=== PATIENT | female | born 1975 | race Caucasian/White ===

== ENCOUNTER 2018-08-02 15:32 | Inpatient (IN) ==
[~2018-08-02 15:32] MED LIST: Aminoglycoside Consult 1 EACH MC ONE
--- NOTE | 2018-08-02 15:36 | Emergency Department Note ---
Disposition Clinical Impression: Rash of groin Skin ulcer of abdomen Qualifiers: Non-pressure ulcer stage: limited to breakdown of skin Qualified Code(s): L98.491 - Non-pressure chronic ulcer of skin of other sites limited to breakdown of skin Disposition: Admitted As Inpatient Condition: Fair Referrals: Kelly Luke MD [Primary Care Provider] - Forms: ED Satisfaction Letter Skin/Abscess/FB HPI Chief complaint: ED Skin/Abscess/Foreign Body Stated complaint: RED OPEN RASH [place] AREA AND LEGS Time Seen by Provider: 08/02/18 15:47 Source: patient, family Mode of arrival: private vehicle Limitations: no limitations Nursing Notes Reviewed: Yes Vital Signs Reviewed: Yes Pt Subjective Complaint: rash Onset (ago): week(s) (1) Tetanus Up to Date: yes Location: Abdomen, genitals Severity: moderate, severe Quality: burning, aching, constant Consistency: constant, Worsening Improves with: none Worsens with: palpation, movement Associated symptoms: Reports: chills, nausea, malaise. Denies: fever, rigors, itching, vomiting, arthralgias, myalgias, cough, shortness of breath Treatments prior to arrival: other (Diflucan for 1 week) Home Medications Medication Instructions Recorded Confirmed Albuterol Sulfate [Albuterol 2 puff IH Q6H PRN 06/22/15 08/02/18 Inhaler] Fluticasone/Salmeterol [Advair 1 each IH BID 06/22/15 08/02/18 100-50 Diskus] Gabapentin [Neurontin] 300 mg PO TID 06/22/15 08/02/18 Ibuprofen [Motrin] 800 mg PO Q8HR 06/22/15 08/02/18 LORazepam [Ativan] 1 mg PO TID PRN 06/22/15 08/02/18 Sertraline [Zoloft] 150 mg PO DAILY 06/22/15 08/02/18 Orphenadrine Citrate [Orphenadrine 100 mg PO TID 08/09/17 08/02/18 Citrate ER] Amitriptyline HCl 100 mg PO BID 08/31/17 08/02/18 Meclizine HCl [Verticalm] 25 mg PO BID PRN 08/31/17 08/02/18 Fluticasone Propionate Nasal 1 spray NS DAILY 08/02/18 08/02/18 [Flonase] Previous Rx's Medication Instructions Recorded Levothyroxine [Synthroid] 200 mcg PO DAILY@0630 #30 tablet 10/03/17 Omeprazole 20 mg PO DAILY 30 Days #30 10/16/17 tablet. Allergies Allergy/AdvReac Type Severity Reaction Status Date / Time codeine Allergy Difficulty Verified 04/24/18 19:12 Breathing haloperidol [From Haldol] Allergy Difficulty Verified 04/24/18 19:12 Breathing levofloxacin [From Levaquin] Allergy Difficulty Verified 04/24/18 19:12 Breathing Penicillins Allergy Difficulty Verified 04/24/18 19:12 Breathing prochlorperazine AdvReac Anxiety Verified 04/24/18 19:12 [From Compazine] IVP Dye Allergy Seizure Uncoded 02/25/18 12:47 All systems ED: reviewed and negative except as stated. Past Medical History - Past Medical History Attestation: Yes The following information was validated with the patient. Source: patient, old records reviewed, obtained from family, nursing notes reviewed Medical history: Reports: asthma, cancer, hyperlipidemia, kidney stones, seizures, thyroid disease, other (Elevated BMI). Denies: diabetes Surgical history: Reports: cholecystectomy (open, bowel resection due to complications of cholecystectomy), hysterectomy (TAHBSO), orthopedic, other, thyroidectomy (due to papillary thyroid cancer), other (EGD, lithotripsy x 12) Psychiatric history: Reports: anxiety, depression [employer] history: Reports: spontaneous , endometriosis, other - Social History Smoking Status: Former smoker Smokeless Tobacco Status: No Alcohol use: Reports: none Drug use: Reports: none Physical Exam - General Limitations: no limitations General appearance: alert, in no apparent distress - Head Head exam: atraumatic, normocephalic, normal inspection - Neck Neck exam: Present: normal inspection, full ROM, trachea midline. Absent: lymphadenopathy - Chest Chest inspection: Present: normal inspection, symmetric chest wall rise - Respiratory Respiratory exam: Present: normal lung sounds bilaterally. Absent: respiratory distress, wheezes, prolonged expiratory phase - Cardiovascular Cardiovascular exam: Present: regular rate, normal rhythm, normal heart sounds - Abdominal Exam Abdominal exam: Present: soft, normal bowel sounds, other (Pannus). Absent: distention, guarding, rebound, rigidity - Extremities Exam Extremities exam: Present: normal inspection, full ROM, normal capillary refill. Absent: tenderness, pedal edema - Expanded Lower Extremity Exam Neurovascular/Tendon exam: Present: normal capillary refill. Absent: motor deficit, sensory deficit, tendon deficit - Neurological Exam Neurological exam: Present: alert, oriented X3 - Psychiatric Psychiatric exam: Present: normal affect, normal mood - Skin Skin exam: Present: warm, dry, intact, normal color, rash (Patient has significant intertrigo in the groin that extends across the lower abdomen under the abdominal pannus. On the vulva and in the sydney-labial region she has erythema as well as some superficial skin breakdown with fibrinous exudates. This area is extremely tender without fluctuance or induration. Patient's redness extends posteriorly on the medial thighs but not to the perirectal region or buttocks.) Course Course Narrative: [id number]: Care is discussed with Dr. Tamayo. He is agreeable with observation and wound care. Verbal orders have been obtained for observation. Vital Signs Temperature 97.5 F L 08/02/18 15:38 Pulse Rate 101 08/02/18 15:38 Respiratory Rate 16 08/02/18 15:38 Blood Pressure 127/71 08/02/18 15:38 O2 Sat by Pulse Oximetry 97 08/02/18 15:38 Temperature 97.5 F L 08/02/18 15:38 Pulse Rate 101 08/02/18 15:38 Respiratory Rate 16 08/02/18 15:38 Blood Pressure 127/71 08/02/18 15:38 O2 Sat by Pulse Oximetry 97 08/02/18 15:38 Skin/Abscess/Foreign Body - Differential Diagnosis Likely: abscess of skin or subcutaneous tissue, dermatophytosis, cellulitis - Medical Records Medical records reviewed: Yes I reviewed the patient's medical records. - Lab Data Lab results reviewed: Yes I reviewed the patient's lab results. Result diagrams: 08/02/18 16:03 08/02/18 16:03 Lab Results 08/02/18 08/02/18 08/02/18 Range/Units 16:03 16:03 16:08 WBC 13.4 H (4.3-11.1) K/mcL RBC 4.54 (3.82-4.97) M/mcL Hgb 10.2 L (11.5-15.4) g/dL Hct 34.6 L (35.3-44.9) % MCV 76.2 L (83.0-100.0) fL MCH 22.5 L (28.0-33.3) pg MCHC 29.5 L (31.6-35.5) g/dL RDW 15.8 H (11.5-14.5) % Plt Count 524 H (140-400) K/mcL MPV 9.4 (9.4-12.4) fL Immature Gran % 1.1 (0-4) % Seg Neutrophils % 70.8 % Lymphocytes % 20.7 % Monocytes % 5.5 % Eosinophils % 1.6 % Basophils % 0.3 % Neutrophils # 9.5 H (1.6-8.9) K/mcL Lymphocytes # 2.8 (0.6-4.6) K/mcL Monocytes # 0.7 (0.0-1.3) K/mcL Eosinophils # 0.2 (0.0-0.6) K/mcL Basophils # 0.0 (0.0-0.2) K/mcL Sodium 136 (136-145) mEq/L Potassium 3.4 L (3.5-5.1) mEq/L Chloride 102 (98-107) mEq/L Carbon Dioxide 25 (23-29) mEq/L BUN 9 (6-20) mg/dL Creatinine 0.66 (0.60-1.20) mg/dL Est GFR ( Amer) > 60 (> 60) Est GFR (Non-Af Amer) > 60 (> 60) BUN/Creatinine Ratio 14 (6-26) Glucose 106 H (70-105) mg/dL POC Glucose 95 (70-99) mg/dL Calculated Osmolality 281 (280-300) Calcium 8.9 (8.6-10.3) mg/dL
[2018-08-02] MEDS ORDERED: *HR* HYDROcodone/Acet 5/325 mg TABLET PO ONE (15:58)
[2018-08-02] MEDS ORDERED: Nystatin POWDER 30 GM BOTTLE TP ONE (15:58)
[2018-08-02 16:09] LABS: Basophils % 0.3 %; Eosinophils # 0.2 K/mcL (0.0-0.6); Eosinophils % 1.6 %; Hematocrit 34.6 % (35.3-44.9); Hemoglobin 10.2 g/dL (11.5-15.4); Immature Granulocytes % 1.1 % (0-4); Lymphocytes # 2.8 K/mcL (0.6-4.6); Lymphocytes % 20.7 %; Mean Corpuscular HGB Conc 29.5 g/dL (31.6-35.5); Mean Corpuscular Hemoglobin 22.5 pg (28.0-33.3); Mean Corpuscular Volume 76.2 fL (83.0-100.0); Mean Platelet Volume 9.4 fL (9.4-12.4); Monocytes # 0.7 K/mcL (0.0-1.3); Monocytes % 5.5 %; Neutrophils # 9.5 K/mcL (1.6-8.9); Platelet Count 524 K/mcL (140-400); Red Blood Count 4.54 M/mcL (3.82-4.97); Red Cell Distribution Width 15.8 % (11.5-14.5); Segmented Neutrophils % 70.8 %
[2018-08-02 16:28] LABS: BUN/Creatinine Ratio 14 (6-26); Blood Urea Nitrogen 9 mg/dL (6-20); Calcium 8.9 mg/dL (8.6-10.3); Carbon Dioxide 25 mEq/L (23-29); Chloride 102 mEq/L (98-107); Glucose 106 mg/dL (70-105); Osmolality,Calculated 281 (280-300); Potassium 3.4 mEq/L (3.5-5.1); Sodium 136 mEq/L (136-145); eGFR For Non-African Americans > 60 (> 60)
[2018-08-02] MEDS ORDERED: Fluconazole 100 MG TABLET PO SCH (19:10)
[2018-08-02] MEDS ORDERED: MOM Conc 10 ML UD.LIQ PO PRN (19:10)
[2018-08-02] MEDS ORDERED: *HR* OxyCODONE Immed Rel 5 MG TABLET PO PRN (19:10)
[2018-08-02] MEDS ORDERED: Ondansetron ODT 4 MG TAB.RAPDIS SL PRN (19:10)
[2018-08-02] MEDS ORDERED: Mag Hydrox/Al Hydrox/Simeth 30 ML UDC PO PRN (19:10)
[2018-08-02] MEDS ORDERED: Naloxone 0.4 MG/ML INJ IVP PRN (19:10)
[2018-08-02] MEDS ORDERED: *HR* HYDROcodone/Acet 5/325 mg TABLET PO PRN (19:10)
[2018-08-02] MEDS: Gabapentin 300 MG CAPSULE PO SCH (20:52)
[2018-08-02] MEDS: Orphenadrine 100 MG TABLET.ER PO SCH (20:53)
[2018-08-02] MEDS: Ketoconazole 2% CRM 15 GM TUBE TP SCH ×2 (20:53→21:48)
[2018-08-02] MEDS ORDERED: Nystatin POWDER 30 GM BOTTLE TP SCH (21:00)
[2018-08-02] MEDS: *HR* LORazepam 1 MG TABLET PO PRN (21:03)
[2018-08-02] MEDS ORDERED: Vancomycin (wt based) 1,000 MG VIAL IV ONE (21:58)
[2018-08-02] MEDS: Budesonide/Formoterol 80/4.5 MDI IH SCH (23:13)
[2018-08-03] MEDS ORDERED: Ibuprofen 800 MG TABLET PO SCH
[2018-08-03] MEDS ORDERED: *HR* HYDROcodone/Acet 5/325 mg TABLET PO SCH
[2018-08-03] MEDS: *HR* HYDROcodone/Acet 5/325 mg TABLET PO ONE ×2 (00:22→21:12)
[2018-08-03] MEDS: *HR* OxyCODONE Immed Rel 5 MG TABLET PO PRN ×5 (01:13→18:53)
[2018-08-03] MEDS: *HR* HYDROcodone/Acet 5/325 mg TABLET PO PRN ×4 (04:33→16:44)
[2018-08-03 05:35] LABS: Basophils % 0.4 %; Eosinophils # 0.3 K/mcL (0.0-0.6); Eosinophils % 2.7 %; Hematocrit 33.4 % (35.3-44.9); Hemoglobin 9.6 g/dL (11.5-15.4); Immature Granulocytes % 1.5 % (0-4); Lymphocytes # 2.8 K/mcL (0.6-4.6); Lymphocytes % 25.4 %; Mean Corpuscular HGB Conc 28.7 g/dL (31.6-35.5); Mean Corpuscular Hemoglobin 22.4 pg (28.0-33.3); Mean Platelet Volume 9.3 fL (9.4-12.4); Monocytes # 0.7 K/mcL (0.0-1.3); Monocytes % 6.2 %; Platelet Count 488 K/mcL (140-400); Red Blood Count 4.28 M/mcL (3.82-4.97); Red Cell Distribution Width 16.3 % (11.5-14.5); Segmented Neutrophils % 63.8 %
[2018-08-03 05:54] LABS: BUN/Creatinine Ratio 13 (6-26); Blood Urea Nitrogen 9 mg/dL (6-20); Calcium 8.7 mg/dL (8.6-10.3); Carbon Dioxide 27 mEq/L (23-29); Chloride 103 mEq/L (98-107); Glucose 85 mg/dL (70-105); Osmolality,Calculated 286 (280-300); Potassium 3.4 mEq/L (3.5-5.1); Sodium 139 mEq/L (136-145); eGFR For Non-African Americans > 60 (> 60)
[2018-08-03 06:07] LABS: Thyroid Stimulating Hormone 16.515 mcIU/mL (0.340-5.600)
[2018-08-03 06:27] LABS: Anisocytosis 2+ (Not Present)
[2018-08-03 06:28] LABS: Hypochromasia Present (Not Present); Ovalocytes 1+ (Not Present); Platelet Estimate Increased (Normal)
[2018-08-03] MEDS: Fluconazole 100 MG TABLET PO SCH (08:23)
[2018-08-03] MEDS: Gabapentin 300 MG CAPSULE PO SCH ×2 (08:25→21:12)
[2018-08-03] MEDS: Fluticasone Propionate Nasal 50 MCG/SPRAY BOTTLE NS SCH (08:25)
[2018-08-03] MEDS: Orphenadrine 100 MG TABLET.ER PO SCH ×3 (08:25→21:14)
[2018-08-03] MEDS: *HR* LORazepam 1 MG TABLET PO PRN ×2 (08:27→21:12)
[2018-08-03] MEDS: Ketoconazole 2% CRM 15 GM TUBE TP SCH ×2 (08:32→21:15)
[2018-08-03 08:43] LABS: % Iron Saturation 6 % (15-50); Iron 22 mcg/dL (50-170); Transferrin 275 mg/dL (203-362)
[2018-08-03 09:00] LABS: Ferritin 15 ng/mL (10-120)
[2018-08-03] MEDS: Budesonide/Formoterol 80/4.5 MDI IH SCH ×2 (10:42→21:47)
[2018-08-03] MEDS ORDERED: IRON DEXTRAN COMPLEX IVPB ONE (10:56)
[2018-08-03] MEDS ORDERED: SODIUM CHLORIDE 0.9% IVPB ONE (10:56)
[2018-08-03] MEDS ORDERED: Cyanocobalamin (B-12) 1,000 MCG/ML VIAL IM ONE (10:57)
[2018-08-03] MEDS ORDERED: Vancomycin 1,750 MG in 0.9 % Sodium Chloride 250 ML IVPB SCH (11:00)
--- NOTE | 2018-08-03 11:03 | Internal Med History&Physical ---
Date of Encounter: 08/03/18 Time of Encounter: 10:05 Assessment and Plan (1) Cellulitis Current visit: Yes Status: Acute She has purulent cellulitis with inflammatory dermatitis and will be started on oral Diflucan, topical ketoconazole, and IV vancomycin for possible secondary bacterial infection. Qualifiers: Site of cellulitis: other site Qualified Code(s): L03.818 - Cellulitis of other sites (2) Iron deficiency anemia Current visit: No Status: Acute Anemia testing showed iron 22, transferrin saturation 6%, transferrin 275, and ferritin 15. She will be given IV iron dextran and NSAIDs will be discontinued. Qualifiers: Iron deficiency anemia type: unspecified iron deficiency Qualified Code(s): D50.9 - Iron deficiency anemia, unspecified (3) B12 deficiency Current visit: Yes Status: Acute B12 level returned significantly low at 120. She will be given a B12 injection and started on oral B12 supplement. (4) Hypokalemia Current visit: Yes Status: Acute Supplemental potassium will be given. (5) Fibromyalgia Current visit: No Status: Acute Continue amitriptyline and gabapentin. (6) Hypothyroidism Current visit: No Status: Acute TSH returned further elevated at 16.515. Synthroid dose will be increased to 250 g daily. Qualifiers: Hypothyroidism type: acquired Qualified Code(s): E03.9 - Hypothyroidism, unspecified (7) Anxiety and depression Current visit: No Status: Chronic Continue Ativan and Zoloft. (8) Asthma Current visit: No Status: Chronic Continue Advair/Symbicort and prn albuterol nebs. Qualifiers: Asthma severity: unspecified severity Asthma persistence: unspecified Asthma complication type: unspecified Qualified Code(s): J45.909 - Unspecified asthma, uncomplicated Internal Medicine - H&P: HPI Chief complaint: Leg ulcerations with drainage Admitted From: Emergency Dept Plans for Post Hospital Care: Home History of present illness: Ms. Ivan is a 43 year old female who came to emergency room stating she had developed significant increased size of a "rash" in her lower abdominal and groin area over the preceding 24-48 hours. She reports purulent drainage present and significant pain. She had been placed on Diflucan 1 week earlier by her PCP for tinea cruris with no improvement. She was evaluated in emergency room and found to have purulent drainage from shallow ulcers in her groin with possible secondary bacterial cellulitis. [facility]. She reports a previous less severe episode of dermatitis several months ago. Past Med Surg Social Fam HX - Past Medical History Medical history: asthma, cancer, hyperlipidemia, kidney stones, seizures, thyroid disease, other Additional medical history: thyroid Psychiatric history: anxiety, depression - Past Surgical History Surgical History: cholecystectomy, hysterectomy, orthopedic, other, thyroidectomy, other Additional surgical history: L knee, shoulder, cyst removed in stomach, bile duct resection - Social History Smoking Status: Former smoker Smokeless Tobacco Status: No Alcohol use: none Drug use: none - Family History Father Adopted: Yes Family Member Ethnicity: Non- Living Status: Hx Family Cardiac Disorders: Yes (RI in 30s) Mother Adopted: Yes Family Member Ethnicity: Non- Brother History Unknown: Yes Adopted: Yes (adopted at 3 months old) Family Member Ethnicity: Non- Living Status: Still Living Internal Medicine - H&P: Meds Albuterol Sulfate [Albuterol Inhaler] 2 puff IH Q6H PRN 06/22/15 [History] Fluticasone/Salmeterol [Advair 100-50 Diskus] 1 each IH BID 06/22/15 [History] Gabapentin [Neurontin] 300 mg PO TID 06/22/15 [History] Ibuprofen [Motrin] 800 mg PO Q8HR 06/22/15 [History] LORazepam [Ativan] 1 mg PO TID PRN 06/22/15 [History] Sertraline [Zoloft] 150 mg PO DAILY 06/22/15 [History] Orphenadrine Citrate [Orphenadrine Citrate ER] 100 mg PO TID 08/09/17 [History] Amitriptyline HCl 100 mg PO BID 08/31/17 [History] Meclizine HCl [Verticalm] 25 mg PO BID PRN 08/31/17 [History] Levothyroxine [Synthroid] 200 mcg PO DAILY@0630 #30 tablet 10/03/17 [Rx] Omeprazole 20 mg PO DAILY 30 Days #30 tablet. 10/16/17 [Rx] Fluticasone Propionate Nasal [Flonase] 1 spray NS DAILY 08/02/18 [History] Allergy/AdvReac Type Severity Reaction Status Date / Time codeine Allergy Difficulty Verified 12/09/18 19:12 Breathing haloperidol [From Haldol] Allergy Difficulty Verified 04/24/18 19:12 Breathing levofloxacin [From Levaquin] Allergy Difficulty Verified 04/24/18 19:12 Breathing Penicillins Allergy Difficulty Verified 04/24/18 19:12 Breathing prochlorperazine AdvReac Anxiety Verified 04/24/18 19:12 [From Compazine] IVP Dye Allergy Seizure Uncoded 02/25/18 12:47 All Systems PM: A 10-system review of systems was performed and is negative for pertinent findings except as documented above in the HPI. Review of systems: Gen.: Her weight has decreased from 137.3 kg on 10/16/2017 to present weight of 120.23 kg. Cardiovascular: She denies hypertension RI heart failure angina DVT or pulmonary embolus. Heart cath 10/13/2017 showed unremarkable coronary arteries. Echocardiogram 09/27/2017 showed LVEF of 65%. No significant valvular abnormalities were seen. Estimated RVSP was 23 mmHg. The interventricular septum and posterior wall thickness measurements were 1.18 and 0.88 cm respectively. Respiratory: She smoked from age [age] up to 4 packs per day. She reports PFTs were done approximately 2016. She reports a diagnosis of asthma. She denies NEHEMIAS evaluation. She does not use home oxygen. GI: She has had cholecystectomy. Surgery was completed by inadvertent nicking of the bowel and/or bile duct resulting in small segmental resection of bowel. She denies disorders of her liver or exocrine pancreas. : She has had multiple calcium oxalate kidney stones with multiple lithotripsies in the past. She denies other kidney or bladder disorders. Neurologic: She reports a seizure following IVP dye administration several years ago. She denies large distribution strokes or recurrent seizures. Endocrine: She had thyroid cancer resulting in total thyroidectomy several years ago. She has been on replacement Synthroid. Her dose was increased from 175 g daily a few days ago to dose of 200 g daily. She has history of hyperlipidemia. She denies DM 2. Hematology/oncology: She has had anemia in the past but does not know details. She had thyroid cancer as per above. She has presumed cancer free. She denies other internal malignancies. Psychiatric: She has anxiety and depression denies other mental health diagnoses. Mus[place] skeletal: She has DJD and has had 3 knee surgeries without replacement. She has fibromyalgia. - Constitutional Vitals: Temp Pulse Resp BP Pulse Ox 97.9 F 86 16 124/78 96 08/03/18 07:43 08/03/18 07:43 08/03/18 07:43 08/03/18 07:43 08/03/18 09:20 Exam: Gen.: She is a well-developed obese female lying in bed who appears in no severe distress at present time HEENT: Head is atraumatic and normocephalic. Eyes: EOMI. There is no scleral icterus. Mouth: Mucosa is moist. Neck: Supple and nontender. There is no thyromegaly or adenopathy noted. Heart: Regular without murmurs gallops or ectopics Lungs: No wheezes or crackles are heard. Abdomen: She has a large abdomen pannus. No masses or guarding are noted. Extremities: There is no cyanosis edema or clubbing noted of her lower legs. She has severe dermatitis in her upper inner thighs bilaterally that extends up into the skin of the groin and perineum and lower abdominal area. There are multiple shallow ulcers with purulent exudate. Neurologic: Mental status: She is talkative and a good historian. Cranial nerves: Smile is symmetric. Forehead wrinkles bilaterally. Tongue protrudes midline. EOMI. Motor: There is no pronator drift. Cerebellar: Finger to nose is intact bilaterally. Skin: Warm and dry Internal Med - H&P Results - Labs CBC & Chem 7: 08/03/18 04:18 08/03/18 04:18 Labs: Short CBC 08/02/18 08/03/18 Range/Units 16:03 04:18 WBC 13.4 H 11.0 (4.3-11.1) K/mcL Hgb 10.2 L 9.6 L (11.5-15.4) g/dL Hct 34.6 L 33.4 L (35.3-44.9) % Plt Count 524 H 488 H (140-400) K/mcL Neutrophils # 9.5 H 7.0 (1.6-8.9) K/mcL BMP 08/02/18 08/03/18 16:03 04:18 Sodium 136 139 Potassium 3.4 L 3.4 L Chloride 102 103 Carbon Dioxide 25 27 BUN 9 9 Creatinine 0.66 0.71 Glucose 106 H 85 Calcium 8.9 8.7
[2018-08-03] MEDS: Lactobacillus 1 EACH CAP.SPRINK PO SCH (21:14)
[2018-08-04] MEDS: *HR* OxyCODONE Immed Rel 5 MG TABLET PO PRN ×3 (00:48→16:14)
[2018-08-04] MEDS: *HR* HYDROcodone/Acet 5/325 mg TABLET PO PRN ×4 (03:08→20:32)
[2018-08-04 06:40] LABS: Basophils # 0.1 K/mcL (0.0-0.2); Basophils % 0.5 %; Eosinophils # 0.3 K/mcL (0.0-0.6); Eosinophils % 2.3 %; Hematocrit 30.7 % (35.3-44.9); Immature Granulocytes % 1.5 % (0-4); Lymphocytes # 2.1 K/mcL (0.6-4.6); Lymphocytes % 18.9 %; Mean Corpuscular HGB Conc 29.3 g/dL (31.6-35.5); Mean Corpuscular Hemoglobin 22.7 pg (28.0-33.3); Mean Corpuscular Volume 77.3 fL (83.0-100.0); Monocytes # 0.7 K/mcL (0.0-1.3); Monocytes % 5.9 %; Neutrophils # 7.8 K/mcL (1.6-8.9); Platelet Count 458 K/mcL (140-400); Red Blood Count 3.97 M/mcL (3.82-4.97); Red Cell Distribution Width 16.1 % (11.5-14.5); Segmented Neutrophils % 70.9 %
[2018-08-04 07:02] LABS: BUN/Creatinine Ratio 15 (6-26); Blood Urea Nitrogen 11 mg/dL (6-20); Calcium 8.8 mg/dL (8.6-10.3); Carbon Dioxide 26 mEq/L (23-29); Chloride 102 mEq/L (98-107); Glucose 92 mg/dL (70-105); Osmolality,Calculated 281 (280-300); Potassium 3.8 mEq/L (3.5-5.1); Sodium 136 mEq/L (136-145); eGFR For Non-African Americans > 60 (> 60)
[2018-08-04] MEDS: Lactobacillus 1 EACH CAP.SPRINK PO SCH ×2 (08:14→20:32)
[2018-08-04] MEDS: Cyanocobalamin (B-12) 1,000 MCG TABLET PO SCH (08:15)
[2018-08-04] MEDS: Fluconazole 100 MG TABLET PO SCH (08:15)
[2018-08-04] MEDS: Ketoconazole 2% CRM 15 GM TUBE TP SCH ×2 (08:16→20:33)
[2018-08-04] MEDS: Orphenadrine 100 MG TABLET.ER PO SCH ×3 (08:16→20:34)
[2018-08-04] MEDS: Fluticasone Propionate Nasal 50 MCG/SPRAY BOTTLE NS SCH (08:16)
[2018-08-04] MEDS: Budesonide/Formoterol 80/4.5 MDI IH SCH ×2 (10:02→22:58)
--- NOTE | 2018-08-04 10:29 | Internal Med Progress Note ---
Date of Encounter: 08/04/18 Time of Encounter: 10:22 - Assessment and plan (1) Cellulitis Current Visit: Yes Status: Acute Assessment and plan: August 04. Primary culture reports noted. Continue Diflucan, topical ketoconazole, and IV vancomycin with lactobacillus. Qualifiers: Site of cellulitis: other site Qualified Code(s): L03.818 - Cellulitis of other sites (2) Iron deficiency anemia Current Visit: No Status: Acute Assessment and plan: August 04. IV iron dextran has been given. Monitor CBC. Qualifiers: Iron deficiency anemia type: unspecified iron deficiency Qualified Code(s): D50.9 - Iron deficiency anemia, unspecified (3) B12 deficiency Current Visit: Yes Status: Acute Assessment and plan: August 04. B12 injection has been given. Continue oral B12 supplement. (4) Hypokalemia Current Visit: Yes Status: Acute Assessment and plan: August 04. Potassium normal at 3.8. Continue potassium supplementation and m onitor labs (5) Fibromyalgia Current Visit: No Status: Acute Assessment and plan: August 04. Continue gabapentin and amitriptyline (6) Hypothyroidism Current Visit: No Status: Acute Assessment and plan: August 04. Continue Synthroid 250 g daily. Qualifiers: Hypothyroidism type: acquired Qualified Code(s): E03.9 - Hypothyroidism, unspecified (7) Anxiety and depression Current Visit: No Status: Chronic Assessment and plan: August 04. Continue Ativan and Zoloft (8) Asthma Current Visit: No Status: Chronic Assessment and plan: August 04. Continue Advair/Symbicort and prn albuterol nebs. Qualifiers: Asthma severity: unspecified severity Asthma persistence: unspecified Asthma complication type: unspecified Qualified Code(s): J45.909 - Unspecified asthma, uncomplicated - Subjective Interval history: August 04. She has no new complaints. - Constitutional Vitals: Temp Pulse Resp BP Pulse Ox 98.4 F 97 18 129/86 92 08/04/18 07:13 08/04/18 07:13 08/04/18 10:03 08/04/18 07:13 08/04/18 10:03 Exam: She is resting comfortably in bed and appears in no acute distress. Her affect is bright and cheerful. There is less purulent drainage in the perineum area. I reviewed her medications, lab results, and culture reports. Internal Medicine: Result - Labs CBC & Chem 7: 08/04/18 06:17 08/04/18 06:17 Labs: Short CBC 08/04/18 Range/Units 06:17 WBC 11.0 (4.3-11.1) K/mcL Hgb 9.0 L (11.5-15.4) g/dL Hct 30.7 L (35.3-44.9) % Plt Count 458 H (140-400) K/mcL Neutrophils # 7.8 (1.6-8.9) K/mcL BMP 08/04/18 06:17 Sodium 136 Potassium 3.8 Chloride 102 Carbon Dioxide 26 BUN 11 Creatinine 0.71 Glucose 92 Calcium 8.8 Consult Discharge Plan - Plan Referrals: Kelly Luke MD [Primary Care Provider] - 1 week
[2018-08-04] MEDS: *HR* LORazepam 1 MG TABLET PO PRN ×2 (10:32→20:33)
[2018-08-04] MEDS: Gabapentin 300 MG CAPSULE PO SCH (20:32)
[2018-08-04] MEDS: Sulfamethoxazole/Trimeth DS 1 EACH TABLET PO SCH (20:33)
[2018-08-05 02:13] VITALS: BP 110/68
[2018-08-05] MEDS: *HR* HYDROcodone/Acet 5/325 mg TABLET PO PRN ×3 (02:43→09:36)
[2018-08-05 07:29] LABS: Basophils # 0.1 K/mcL (0.0-0.2); Basophils % 0.6 %; Eosinophils # 0.2 K/mcL (0.0-0.6); Hematocrit 31.3 % (35.3-44.9); Hemoglobin 9.2 g/dL (11.5-15.4); Immature Granulocytes % 2.1 % (0-4); Lymphocytes # 1.9 K/mcL (0.6-4.6); Mean Corpuscular HGB Conc 29.4 g/dL (31.6-35.5); Mean Corpuscular Hemoglobin 22.7 pg (28.0-33.3); Mean Corpuscular Volume 77.3 fL (83.0-100.0); Mean Platelet Volume 9.1 fL (9.4-12.4); Monocytes # 0.5 K/mcL (0.0-1.3); Monocytes % 5.9 %; Neutrophils # 5.3 K/mcL (1.6-8.9); Nucleated Red Blood Cells 0.4 /100 WBC (0); Platelet Count 445 K/mcL (140-400); Red Blood Count 4.05 M/mcL (3.82-4.97); Red Cell Distribution Width 15.9 % (11.5-14.5); Segmented Neutrophils % 65.4 %
[2018-08-05 07:41] LABS: BUN/Creatinine Ratio 16 (6-26); Blood Urea Nitrogen 10 mg/dL (6-20); Calcium 8.9 mg/dL (8.6-10.3); Carbon Dioxide 28 mEq/L (23-29); Chloride 103 mEq/L (98-107); Glucose 85 mg/dL (70-105); Osmolality,Calculated 282 (280-300); Sodium 137 mEq/L (136-145); eGFR For Non-African Americans > 60 (> 60)
[2018-08-05] MEDS: Budesonide/Formoterol 80/4.5 MDI IH SCH (09:07)
[2018-08-05] MEDS: Fluconazole 100 MG TABLET PO SCH (09:24)
[2018-08-05] MEDS: Lactobacillus 1 EACH CAP.SPRINK PO SCH (09:26)
[2018-08-05] MEDS: Sulfamethoxazole/Trimeth DS 1 EACH TABLET PO SCH (09:26)
[2018-08-05] MEDS: Cyanocobalamin (B-12) 1,000 MCG TABLET PO SCH (09:26)
[2018-08-05] MEDS: Orphenadrine 100 MG TABLET.ER PO SCH (09:27)
[2018-08-05] MEDS: Ketoconazole 2% CRM 15 GM TUBE TP SCH (09:36)
[2018-08-05] MEDS: Fluticasone Propionate Nasal 50 MCG/SPRAY BOTTLE NS SCH (09:37)
--- NOTE | 2018-08-05 10:12 | Discharge Summary ---
Orders not resulted at time of discharge: Pending orders 08/04/18 06:17 Zinc AM 0400 Date of Encounter: 08/05/18 Time of Encounter: 09:57 - Discharge Diagnosis (1) Cellulitis Priority: Primary Status: Acute Qualifiers: Site of cellulitis: other site Qualified Code(s): L03.818 - Cellulitis of other sites (2) Iron deficiency anemia Priority: Secondary Status: Acute Qualifiers: Iron deficiency anemia type: unspecified iron deficiency Qualified Code(s): D50.9 - Iron deficiency anemia, unspecified (3) B12 deficiency Priority: Secondary Status: Acute (4) Hypokalemia Priority: Secondary Status: Resolved (5) Fibromyalgia Priority: Secondary Status: Chronic (6) Hypothyroidism Priority: Secondary Status: Chronic Qualifiers: Hypothyroidism type: acquired Qualified Code(s): E03.9 - Hypothyroidism, unspecified (7) Anxiety and depression Priority: Secondary Status: Chronic (8) Asthma Priority: Secondary Status: Chronic Qualifiers: Asthma severity: unspecified severity Asthma persistence: unspecified Asthma complication type: unspecified Qualified Code(s): J45.909 - Unspecified asthma, uncomplicated Hospital course: Ms. Ivan is a 43 year old female who came to emergency room stating she had developed significant increased size of a "rash" in her lower abdominal and groin area over the preceding 24-48 hours. She reports purulent drainage present and significant pain. She had been placed on Diflucan 1 week earlier by her PCP for tinea cruris with no improvement. She was evaluated in emergency room and found to have purulent drainage from shallow ulcers in her groin with possible secondary bacterial cellulitis. She was admitted to [facility] floor for ongoing care needs. Initial orders were written by the urgency room physician. I saw her on August 03 and performed a history and physical. She was started on topical ketoconazole, IV vancomycin, and oral Diflucan. Wound cultures returned showing MRSA and Escherichia coli. She will be prescribed Septra DS twice a day for 5 additional days at discharge. She will also continue oral Diflucan 200 mg daily and topical ketoconazole 5 additional days. Ultram was given for pain control. Anemia testing showed iron 22, transferrin saturation 6%, transferrin 275, and ferritin 15. She was given a dose of IV iron dextran. NSAIDs were discontinued. B12 level returned significantly low 120. She was given a B12 injection and was started on oral B12 supplement. Vitamin D level returned < 5. She will be started on vitamin D 2000 international units daily. Her PCP can monitor labs. Supplemental potassium was given and hypokalemia resolved. TSH returned further elevated at 16.515. Synthroid dose will be increased to 250 g daily. On August 05 she was stable for discharge home. She will follow with her PCP Dr. Luke within 1 week. - Time Spent with Patient Total time spent providing and/or coordinating discharge services: - Discharge Medications Prescriptions: New Cholecalciferol (D-3) [Vitamin D] 2,000 unit PO DAILY 365 Days tablet Cyanocobalamin (B-12) [Vitamin B12] 1,000 mcg PO DAILY 365 Days tablet Fluconazole [Diflucan] 200 mg PO DAILY #10 tablet Lactobacillus [Culturelle] 1 each PO BID #10 cap.sprink Levothyroxine [Synthroid] 50 mcg PO 0630 #30 tablet Sulfamethoxazole/Trimeth DS [Bactrim Ds] 1 each PO BID #10 tablet Tramadol HCl [Ultram] 50 mg PO QID PRN 3 Days #12 tab PRN Reason: Pain Ketoconazole 2% CRM [Nizoral Cream] 1 appl TP BID #1 tube Continue Meclizine HCl [Verticalm] 25 mg PO BID PRN PRN Reason: Dizziness Amitriptyline HCl 100 mg PO BID Levothyroxine [Synthroid] 200 mcg PO DAILY@0630 #30 tablet Omeprazole 20 mg PO DAILY 30 Days #30 tablet. Sertraline [Zoloft] 150 mg PO DAILY Gabapentin [Neurontin] 300 mg PO TID LORazepam [Ativan] 1 mg PO TID PRN PRN Reason: Anxiety Fluticasone/Salmeterol [Advair 100-50 Diskus] 1 each IH BID Albuterol Sulfate [Albuterol Inhaler] 2 puff IH Q6H PRN PRN Reason: Dyspnea Orphenadrine Citrate [Orphenadrine Citrate ER] 100 mg PO TID Fluticasone Propionate Nasal [Flonase] 1 spray NS DAILY Discontinued Ibuprofen [Motrin] 800 mg PO Q8HR Home Medications: Albuterol Sulfate [Albuterol Inhaler] 2 puff IH Q6H PRN 06/22/15 [History] Fluticasone/Salmeterol [Advair 100-50 Diskus] 1 each IH BID 06/22/15 [History] Gabapentin [Neurontin] 300 mg PO TID 06/22/15 [History] LORazepam [Ativan] 1 mg PO TID PRN 06/22/15 [History] Sertraline [Zoloft] 150 mg PO DAILY 06/22/15 [History] Orphenadrine Citrate [Orphenadrine Citrate ER] 100 mg PO TID 08/09/17 [History] Amitriptyline HCl 100 mg PO BID 08/31/17 [History] Meclizine HCl [Verticalm] 25 mg PO BID PRN 08/31/17 [History] Levothyroxine [Synthroid] 200 mcg PO DAILY@0630 #30 tablet 10/03/17 [Rx] Omeprazole 20 mg PO DAILY 30 Days #30 tablet. 10/16/17 [Rx] Fluticasone Propionate Nasal [Flonase] 1 spray NS DAILY 08/02/18 [History] Cholecalciferol (D-3) [Vitamin D] 2,000 unit PO DAILY 365 Days tablet 08/05/18 [Rx] Cyanocobalamin (B-12) [Vitamin B12] 1,000 mcg PO DAILY 365 Days tablet 08/05/18 [Rx] Fluconazole [Diflucan] 200 mg PO DAILY #10 tablet 08/05/18 [Rx] Ketoconazole 2% CRM [Nizoral Cream] 1 appl TP BID #1 tube 08/05/18 [Rx] Lactobacillus [Culturelle] 1 each PO BID #10 cap.sprink 08/05/18 [Rx] Levothyroxine [Synthroid] 50 mcg PO 0630 #30 tablet 08/05/18 [Rx] Sulfamethoxazole/Trimeth DS [Bactrim Ds] 1 each PO BID #10 tablet 08/05/18 [Rx] Tramadol HCl [Ultram] 50 mg PO QID PRN 3 Days #12 tab 08/05/18 [Rx] Allergies/Adverse Reactions: Allergy/AdvReac Type Severity Reaction Status Date / Time codeine Allergy Difficulty Verified 04/24/18 19:12 Breathing haloperidol [From Haldol] Allergy Difficulty Verified 04/24/18 19:12 Breathing levofloxacin [From Levaquin] Allergy Difficulty Verified 04/24/18 19:12 Breathing Penicillins Allergy Difficulty Verified 04/24/18 19:12 Breathing prochlorperazine AdvReac Anxiety Verified 04/24/18 19:12 [From Compazine] IVP Dye Allergy Seizure Uncoded 02/25/18 12:47 Date of admission: 08/03/18 13:09 Primary care physician: Kelly Luke - Constitutional Vitals: Temp Pulse Resp BP Pulse Ox 98.3 F 92 18 110/68 91 08/05/18 02:10 08/05/18 02:10 08/05/18 09:07 08/05/18 02:10 08/05/18 09:07 - Patient Status Disposition: Home, Self-Care Condition: Fair - Discharge Instructions Follow Up With: Kelly Luke MD [Primary Care Provider] - 1 week - Diet and Activity Activity: resume usual activities as tolerated Diet: advance to your usual diet
== END 2018-08-05 13:16 | disposition home or self-care (01) | DRG 603 ==
LOC: EMEROOPIK 15:32 → INPPIK 15:32
PROVIDERS: ADMIT Internal Medicine; ATTEND Internal Medicine